=== PATIENT | female | born 1975 | race African-American/Black ===

== ENCOUNTER 2017-10-07 17:39 | Emergency (ER) | payer SELFPAY ==
[~2017-10-07] VITALS: Ht 157.5 cm; Wt 70.3 kg
[2017-10-07 19:31] VITALS: BP 117/70
[2017-10-07 19:47] LABS: APPEARANCE,URINE CLEAR; BILIRUBIN, URINE NEGATIVE (NEGATIVE); GLUCOSE, URINE (UA) NEGATIVE (NEGATIVE); KETONES,URINE 3+ (NEGATIVE); LEUKOCYTE ESTERASE ,URINE 1+ (NEGATIVE); NITRITE,URINE NEGATIVE (NEGATIVE); PH,URINE 6 (4.5-8.0); PROTEIN,URINE 1+ (NEGATIVE); UROBILINOGEN,URINE 4 MG/DL (0.0-1.0)
[2017-10-07 19:50] LABS: COLOR,URINE YELLOW
--- NOTE | 2017-10-07 20:32 | Emergency Room Report ---
History of Present Illness General Chief Complaint: General Complaint Source: Patient Present Illness HPI 42-year-old female presents emergency department complaining of having strong smell and taste of chemicals x 1 week acute onset after smoking a cigarette. Patient reports that anything she eats all takes the same and is "bitter/ chemical like". Patient denies fevers, chills, possible intoxication, recent antibiotics, recent illnesses, trauma/fall/head injury, unilateral weakness or other neurological symptoms. Patient denies urinary frequency, urgency she reports some mild dysuria. Patient denies abdominal pain she reports nausea. Denies or vomiting. Denies hx of GERD. Denies ST, cough, or changes in her voice. Reports recently dieting, and having a hard time eating regularly as she has a busy job. pt. denies pmhx. Denies dizziness, syncope or AMS. Denies fatigue Allergies: Coded Allergies: PENICILLINS (Verified Allergy, Unknown, Hives, 10/07/17) Patient History Past Medical History: see triage record Past Surgical History: none Pertinent Family History: none Last Menstrual Period: 09/10/17 Now: No : 1 Para: 1 Reviewed Nursing Documentation: PMH: Agreed; PSxH: Agreed Nursing Documentation-PMH Past Medical History: No Stated History Review of Systems All Other Systems: negative except mentioned in HPI Physical Exam Vital Signs Date Time Temp Pulse Resp B/P (MAP) Pulse Ox O2 Delivery O2 Flow Rate FiO2 10/07/17 17:59 98.1 76 18 117/70 98 Room Air 98.1 Sp02 EP Interpretation: reviewed, normal General Appearance: no apparent distress, alert, GCS 15, non-toxic Head: normocephalic, atraumatic Eyes: bilateral eye normal inspection, bilateral eye PERRL ENT: hearing grossly normal, normal voice Neck: full range of motion Respiratory: lungs clear, normal breath sounds, speaking full sentences Cardiovascular #1: regular rate, rhythm Gastrointestinal: normal bowel sounds, non tender, soft Genitourinary: normal inspection, no CVA tenderness Musculoskeletal: back normal, gait/station normal, normal range of motion, non- tender Neurologic: alert, oriented x3, responsive, motor strength/tone normal, sensory intact, normal gait, speech normal, grossly normal Psychiatric: judgement/insight normal Skin: normal color, no rash, warm/dry, well hydrated Lymphatic: no adenopathy Medical Decision Making PA Attestation Dr. Bender is my supervising Physician whom patient management has been discussed with. Diagnostic Impression: Primary Impression: Yeast infection Additional Impressions: Urine ketones Abnormal taste in mouth Disturbance of smell and taste ER Course 42-year-old female presents emergency department complaining of having strong smell and taste of chemicals x 1 week acute onset after smoking a cigarette. Patient reports that anything she eats all takes the same and is "bitter/ chemical like". Patient denies fevers, chills, possible intoxication, recent antibiotics, recent illnesses, trauma/fall/head injury, unilateral weakness or other neurological symptoms. Patient denies urinary frequency, urgency she reports some mild dysuria. Patient denies abdominal pain she reports nausea. Denies or vomiting. Denies hx of GERD. Denies ST, cough, or changes in her voice. Reports recently dieting, and having a hard time eating regularly as she has a busy job. pt. denies pmhx. Denies dizziness, syncope or AMS. Denies fatigue Ddx considered but are not limited to UTi , Pyelo, STI, Stone, Cystitis, , stroke, poisoning/intoxication. Vital signs: are WNL, pt. is afebrile H&PE are most consistent with possible UTI/, no focal neurological deficits, no additional symptoms or suspicion of poisoning/intoxication ORDERS: - UA labs are attached - Positive for yeast and elevated ketones 4+ , no glucose elevation. ED INTERVENTIONS: -Zofran PO - Pepcid PO -Diflucan PO -I do not identify an emergent condition at this time. With current presentation , pt. is stable for close outpatient follow up and conservative treatment. D/ w pt. to return promptly to ED with worsening or new symptoms.- Pt. verbalizes' understanding and agreement with proposed treatment plan.proposed treatment plan. DISCHARGE: At this time pt. is stable for d/c to home. Will provide printed patient care instructions, and any necessary prescriptions. Care plan and follow up instructions have been discussed with the patient prior to discharge. Labs Test 10/07/17 19:30 Urine Color Yellow Urine Appearance Clear Urine pH 6 (4.5-8.0) Urine Specific [place] 1.020 (1.005-1.035) Urine Protein 1+ (NEGATIVE) Urine Glucose (UA) Negative (NEGATIVE) Urine Ketones 3+ (NEGATIVE) Urine Occult Blood 4+ (NEGATIVE) Urine Nitrite Negative (NEGATIVE) Urine Bilirubin Negative (NEGATIVE) Urine Urobilinogen 4 MG/DL (0.0-1.0) Urine Leukocyte Esterase 1+ (NEGATIVE) Urine RBC 0-2 /HPF (0 - 2) Urine WBC 2-4 /HPF (0 - 2) Urine Squamous Epithelial Cells Few /LPF (NONE/OCC) Urine Bacteria Few /HPF (NONE) Urine Yeast Few /HPF (NONE) Urine HCG, Qualitative Negative (NEGATIVE) Last Vital Signs Date Time Temp Pulse Resp B/P (MAP) Pulse Ox O2 Delivery O2 Flow Rate FiO2 10/07/17 19:31 98.1 76 18 117/70 98 Room Air 98.1 Disposition: HOME, SELF-CARE Condition: Stable Scripts Fluconazole (FLUCONAZOLE) 100 Mg Tablet 100 MG ORAL DAILY, #3 TAB 0 Refills Prov: Yuni Chavez 10/07/17 Ondansetron* (ZOFRAN*) 4 Mg Tablet 4 MG ORAL Q6H PRN for Nausea & Vomiting, #20 TAB Prov: Yuni Chavez 10/07/17 Referrals: NOT CHOSEN IPA/MD,REFERRING (PCP) Patient Instructions: Vaginal Yeast Infection, Adult Additional Instructions: Take medications as directed. Follow up with a Primary Care Provider in 3-5 days, even if your symptoms have resolved. --Please review list of primary care clinics, if you do not already have a primary care provider Return sooner to ED if new symptoms occur, or current symptoms become worse. - Please note that this Emergency Department Report was dictated using [employer] technology software, occasionally this can lead to erroneous entry secondary to interpretation by the dictation equipment. Yuni Chavez Oct 07, 2017 20:32
[2017-10-07] MEDS ORDERED: ZOFRAN4 M3 ORAL (20:33)
[2017-10-07] MEDS ORDERED: FLUCONAZOLE100 MG ORAL (20:33)
[2017-10-07] MEDS ORDERED: Fluconazole 100mg tab ORAL ONE (20:45)
[2017-10-07 21:00] VITALS: BP 124/65
== END 2017-10-07 21:00 | disposition home or self-care (01) ==
LOC: EMR 19:06
DX: B37.9 Candidiasis, unspecified (principal); R82.4 Acetonuria; R43.8 Other disturbances of smell and taste; Z88.0 Allergy status to penicillin
CPT/HCPCS: 81003; 81025; 87086; 99283